=== PATIENT | female | born 1940 | race Caucasian/White ===

== ENCOUNTER → 2018-03-03 | Outpatient (CLI) | payer OTHER ==
[~2018-03-03] MED LIST: DOXYCYCLINE 10100 M1 PO; KEFLEX500 MG PO; LEVOXYL150 MCG PO; SYNTHROID PO; SYNTHROID175 MCG
== END ==
LOC: M.RAD 10:30
DX: Z12.31 Encounter for screening mammogram for malignant neoplasm of breast (principal)

== ENCOUNTER → 2019-08-31 | Outpatient (CLI) | payer MEDICARE | LOC: M.RAD 10:10 | DX: Z12.31 Encounter for screening mammogram for malignant neoplasm of breast (principal) ==